=== PATIENT | female | born 1980 | race Caucasian/White ===

== ENCOUNTER 2018-01-04 01:15 | Emergency (ER) | payer SELFPAY ==
[2018-01-04] MEDS ORDERED: DIPHTH,PERTUSS(ACELL),TET VAC 0.5 ML VIAL IM ONE (01:24)
[2018-01-04] MEDS ORDERED: ACETAMINOPHEN 325 MG TABLET (FP) PO ONE (01:26)
[2018-01-04 02:00] LABS: URINE APPEARANCE CLEAR; URINE BILIRUBIN NEGATIVE (<2.0 mg/dL); URINE BLOOD 2+ (NEGATIVE); URINE COLOR STRAW; URINE GLUCOSE (UA) NEGATIVE (NEGATIVE); URINE KETONE NEGATIVE (NEGATIVE); URINE LEUK ESTERASE NEGATIVE (NEGATIVE); URINE NITRITE NEGATIVE (NEGATIVE); URINE PROTEIN NEGATIVE (NEGATIVE); URINE UROBILINOGEN NEGATIVE mg/dL (0.2-1.0)
--- NOTE | 2018-01-04 02:02 | PDOC ---
History of Present Illness - General Chief Complaint: Injury Stated Complaint: LAC TO FOREHEAD History Source: Patient Exam Limitations: No Limitations - History of Present Illness Initial Comments: 01/04/18 01:56 37-year-old female no past medical history here today status post trip and fall sustaining a laceration to her forehead. Patient states she was at a bar was outside having a cigarette subsequent fell forward hitting her forehead on the cement unsure of LOC did sustain a large laceration to her anterior scalp and forehead. States tetanus was unknown has had active bleeding since no other complaints of current pain no neck or back pain. No moderating factors. Past History - Past Medical History Allergies/Adverse Reactions: Allergies Allergy/AdvReac Type Severity Reaction Status Date / Time No Known Allergies Allergy Verified 01/04/18 02:31 - Suicide/Smoking/Psychosocial Hx Smoking History: Never smoked Have you smoked in the past 12 months: No Hx Alcohol Use: No Substance Use Type: None Review of Systems - Review of Systems Constitutional: No: Chills, Diaphoresis HEENTM: No: Eye Pain, Blurred Vision, Nose Bleeding Respiratory: No: Cough, Orthopnea, Wheezing Cardiac (ROS): No: Chest Pain ABD/GI: No: Abdominal Distended Musculoskeletal: No: Back Pain Integumentary: Yes: Other (laceration) Neurological: No: Headache, Numbness All Other Systems: Reviewed and Negative *Physical Exam - Physical Exam General Appearance: Yes: Nourished, Appropriately Dressed HEENT: positive: Normal ENT Inspection, Other (large forehead laceration) Neck: positive: Trachea midline. negative: Tender Respiratory/Chest: positive: Lungs Clear, Normal Breath Sounds. negative: Chest Tender Cardiovascular: positive: Regular Rhythm, Regular Rate, S1, S2. negative: Edema Gastrointestinal/Abdominal: positive: Normal Bowel Sounds, Flat, Soft. negative : Tender Musculoskeletal: positive: Normal Inspection. negative: Vertebral Tenderness Extremity: positive: Normal Capillary Refill, Normal Inspection Integumentary: positive: Normal Color, Dry, Warm, Other (large stellate laceration anterior forehead into scalp , down to skull. no palp step off. ) Neurologic: positive: environmental marketer II-XII NML intact, Fully Oriented, Alert, Motor Strength 5/5, Other (GCS 15) Procedures - Laceration/Wound Repair Face Wound Length: 7.6 to 12.5 cm Wound Explored: clean Wound's Depth, Shape: stellate Irrigated w/ Saline: Yes Betadine Prep: No Anesthesia: 2% Lidocaine w/ Epi Wound Debrided: minimal Wound Repaired With: Sutures, [place] Suture Size/Type: 5:0, nylon, other (deep layer 3.0 chromic gut) Number of Sutures: 7 (and 9 deanne) Layer Closure: Yes Deep Layer Suture Size/Type: 3:0, gut Sterile Dressing Applied: Yes Splint Applied: No Sling Applied: No ED Treatment Course - RADIOLOGY Radiology Studies Ordered: Category Date Time Status HEAD CT WITHOUT CONTRAST [CT] Stat CT Scan 01/04/18 01:22 Taken Medical Decision Making - Medical Decision Making 01/04/18 02:01 37 yo F s/p trip and fall with large laceration to forehead to skull, and into scalp stellate. irregular and deep. plan ct head r/o underlying skull fracture or head bleed, lac repair with both sutures and deanne. shawn ms home. *DC/Admit/Observation/Transfer Diagnosis at time of Disposition: Laceration - Discharge Dispostion Disposition: HOME Condition at time of disposition: Improved Admit: No - Referrals - Patient Instructions Printed Discharge Instructions: DI for Suture Removal, DI for Laceration Repair -- Deanne Additional Instructions: you should return for suture removal,and staple removal in 7 - 10 days. take ibuprofen 600 mg every 8 hrs as needed for pain. keep clean and dry for 24 - 48 hrs, then wash with mild soap and water. you can apply bacitracin over the counter ointment twice daily to wound,. keep out of sun to avoid scarring. return for redness, swelling or any signs of infection. - Post Discharge Activity
[2018-01-04 02:14] LABS: EPI CELLS RARE /HPF (FEW)
[2018-01-04] MEDS ORDERED: LIDO 2%/EPI 1:200000 PRESRVFRE (20 ML SDVIAL) ONE (02:29)
[2018-01-04 02:38] VITALS: BP 129/85; PULSE 115; TEMP 97.9; BMI 29.1
[2018-01-04] MEDS ORDERED: ACETAMINOPHEN 325 MG TABLET (FP) ONE (02:39)
== END 2018-01-04 03:42 | disposition home or self-care (01) ==
LOC: FER 01:15
PROC: 3E0234Z Introduction of Serum, Toxoid and Vaccine into Muscle, Percutaneous Approach (ICD-10-PCS; principal; 2018-01-04)
PROC: 0HQ1XZZ Repair Face Skin, External Approach (ICD-10-PCS; 2018-01-04)
DX: S01.81XA Laceration without foreign body of other part of head, initial encounter (principal); W18.39XA Other fall on same level, initial encounter; Y93.89 Activity, other specified; Y92.89 Other specified places as the place of occurrence of the external cause
CPT/HCPCS: 70450-TC; 81003; 81015; 99282-25

== ENCOUNTER 2019-09-17 19:24 | Emergency (ER) | payer OTHER ==
[2019-09-17 19:42] VITALS: TEMP 98.6; BMI 34.0
[2019-09-17] MEDS ORDERED: morphine CARPU-JECT 4 MG/1 ML DISP.SYRIN IVPUSH ONE ×2 (20:06→20:09)
--- NOTE | 2019-09-17 20:06 | PDOC ---
History of Present Illness - General Chief Complaint: Bone Injury Stated Complaint: BROKEN ANKLE Time Seen by Provider: 09/17/19 19:49 - History of Present Illness Initial Comments: Ms. Barron is a 39 y/o female with non-contributory PMH presenting today s/p mechanical fall. Reports that she slipped on a wet floor at around 6pm today. Denies head trauma or LOC. Denies dizziness or heart palpitations prior to fall. Reports that she fell forward. Currently reports left ankle swelling and pain. Denies chest pain/shortness of breath. Denies abdominal pain. Denies urinary symptoms. Denies changes in stool. Denies nausea/vomiting. Denies pain anywhere else. Past History - Past Medical History Allergies/Adverse Reactions: Allergies Allergy/AdvReac Type Severity Reaction Status Date / Time No Known Allergies Allergy Verified 01/04/18 02:31 Home Medications: Ambulatory Orders Oxycodone HCl/Acetaminophen [Percocet 5-325 mg Tablet] 1 tab PO Q6H PRN #6 tablet MDD 4 09/17/19 COPD: No Kidney Stones: Yes (lithotripsy) Other medical history: hypoglycemia - Psycho Social/Smoking Cessation Hx Smoking History: Current every day smoker Have you smoked in the past 12 months: No Number of Cigarettes Smoked Daily: 10 Information on smoking cessation initiated: No 'Breaking Loose' booklet given: 01/04/18 Hx Alcohol Use: No Drug/Substance Use Hx: No Substance Use Type: None Review of Systems - Review of Systems Comments:: GENERAL/CONSTITUTIONAL: No fever or chills. No weakness._ HEAD, EYES, EARS, NOSE AND THROAT: No change in vision. No change in hearing. No sore throat._ CARDIOVASCULAR: No chest pain or shortness of breath_ RESPIRATORY: Denies cough, hemoptysis_ GASTROINTESTINAL: No nausea, vomiting, diarrhea or constipation._ GENITOURINARY: No dysuria, frequency, or change in urination._ MUSCULOSKELETAL: Reports left ankle swelling and pain. SKIN: No rash_ NEUROLOGIC: No headache, vertigo, loss of consciousness, or change in strength/ sensation._ ENDOCRINE: No increased thirst. No abnormal weight change_ HEMATOLOGIC/LYMPHATIC: No anemia, easy bleeding, or history of blood clots._ ALLERGIC/IMMUNOLOGIC: No hives or skin allergy._ *Physical Exam - Vital Signs Last Vital Signs Temp Pulse Resp BP Pulse Ox 98.6 F 85 18 116/85 100 09/17/19 19:30 09/17/19 19:30 09/17/19 19:30 09/17/19 19:30 09/17/19 19:30 - Physical Exam GENERAL: Awake, alert, and oriented to person/place/time, in no acute distress_ HEAD: No signs of trauma, normocephalic, atraumatic _ EYES: PERRLA, EOMI, sclera anicteric, conjunctiva clear_ ENT: Hearing grossly normal, nares patent, oropharynx clear without exudates. No uvular deviation. Moist mucosa_ NECK: Normal ROM, supple, no lymphadenopathy, JVD, or masses_ LUNGS: No distress, speaks in full sentences, clear to auscultation bilaterally _ HEART: Regular rate and rhythm, normal S1 and S2, no murmurs appreciated, peripheral pulses normal and equal bilaterally._ ABDOMEN: Soft, nontender, normoactive bowel sounds. No guarding, no rebound. No masses_ EXTREMITIES: Normal inspection, Normal range of motion, no edema. No clubbing or cyanosis. Mild left hip TTP without obvious swelling. LLE: Inspection: No erythema. Ecchymosis over left ankle. TTP left lateral and anterior aspect of ankle. Left ankle swelling. No open wounds. Compartments soft and compressible, pain within proportion. Knee stable to anterior/posterior drawer and varus/valgus stress Sensation: Intact and equal bilaterally Motor: 5/5 EHL, 5/5 FHL, 5/5 TA, 5/5GS, 5/5 Quad, 5/5 Ham Vascular: 2+ DP/PT, all toes BCR <2 sec NEUROLOGICAL: Cranial nerves II through XII grossly intact. Normal speech, normal gait, no focal sensorimotor deficits _ SKIN: Warm, Dry, normal turgor, no rashes or lesions noted_ Medical Decision Making - Medical Decision Making 09/17/19 20:05 39F non-contributory PMH -XR left knee, tib/fib, ankle, foot -morphine 09/17/19 21:33 Self read of XR of the left ankle shows posterior dislocation and oblique displaced fracture of the left fibula. 09/17/19 22:05 Conscious Sedation Note Indication: left ankle posterior dislocation and fibula fracture. Pre-sedation history and examination revealed: ASA score 1; family history negative for adverse anesthetic/sedative reactions; normal dentition/neck mobility; and no contraindications to sedation. Risks, benefits and alternatives were discussed, who desired to proceed. O2 saturation, and BP constantly monitored during sedation. A qualified nurse and additional provider were present during the sedation.? The patient received 80 mg IV ketamine , achieving an appropriate level of sedation. The patient then underwent left ankle reduction. Total sedation time for which I was present was 20 minutes until minimal consciousness and responsiveness achieved, and deep/moderate sedation was no longer present. There were no significant O2 desaturations or complications during this sedation and procedure. Patient was subsequently monitored until reevaluation revealed patient was back to neurologic baseline. Attending Physician Dr. Day was present for the entirety of the procedure. Joint Reduction Note Consent (written) was obtained from the patient after the risks and benefits were discussed. Nursing staff were present and the patient was monitored using continuous pulse oximetry and telemetry. The patient was pre-oxygenated using high flow oxygen. IV ketamine was used to achieve sedation and the procedure was performed. Once the patient was adequately sedated, the left ankle was reduced using the traction-counter traction technique. A postoperative X-ray revealed the joint to be adequately reduced. Subsequently, the patient was monitored until the sedation wore off and the patient was alert and recovered. I was present for the entire procedure and there were no complications. Attending Dr. Day was present for the entirely of the procedure. 09/17/19 23:15 Self-read of post-reduction XR shows improved alignment of the left ankle and left fibula. Patient able to ambulate on crutches. Plan to d/c home, percocet and motrin for pain control, f/u ortho. Return precautions discussed. Patient verbalized understanding and agreement with plan. All questions answered. Discharge - Discharge Information Problems reviewed: Yes Clinical Impression/Diagnosis: Injury Ankle dislocation Qualifiers: Encounter type: initial encounter Laterality: left Qualified Code(s): S93.05XA - Dislocation of left ankle joint, initial encounter Condition: Stable Disposition: HOME - Additional Discharge Information Prescriptions: Oxycodone HCl/Acetaminophen [Percocet 5-325 mg Tablet] 1 tab PO Q6H PRN #6 tablet MDD 4 PRN Reason: Pain - Follow up/Referral Referrals: Christopher Gan MD [Staff Physician] - - Patient Discharge Instructions Patient Printed Discharge Instructions: DI for Moderate Sedation, DI for Ankle Dislocation Additional Instructions: Your x-rays showed a posterior dislocation of the left ankle and fracture of the left fibula. Your ankle was reduced and placed in a cast. Please keep the cast in place until you see Dr. Gan (orthopedics) and pleas avoid bearing weight on your left ankle. Please make a follow up appointment with Dr. Gan in the next week. He will be in the office on Friday. You have been prescribed 6 tabs of Percocet as needed for your pain until you are able to see the orthopedist. You may also take Tylenol or Motrin as needed for your pain. If you experience any new, worsening, or concerning symptoms, including a change in color or temperature of the foot, or any other concerns, please return to the emergency department. - Post Discharge Activity
[2019-09-17] MEDS ORDERED: morphine SULFATE 4 MG/ML VIAL ONE (20:31)
[2019-09-17] MEDS ORDERED: MORPHINE SULFATE 2 MG/ML VIAL ONE (20:32)
[2019-09-17] MEDS ORDERED: KETAMINE HCL 200 MG/20 ML VIAL IVPUSH ONE ×2 (21:29)
[2019-09-17] MEDS ORDERED: KETAMINE HCL 200 MG/20 ML VIAL ONE (21:33)
--- NOTE | 2019-09-17 21:34 | CON.ORTH ---
Consult Consult Specialty:: Orthopedics Reason for Consultation:: left ankle fracture and dislocation - History of Present Illness Chief Complaint: Left ankle pain History of Present Illness: This is a 39 yo F with no PMHx who presented to the ED for left ankle injury s/ p mechanical fall earlier today. Patient states she slipped on a wet floor in [facility] and twisted her ankle. She was unable to ambulate after the injury. Denies any previous injury to this ankle. Notes mild tingling to dorsum of foot. - History Source History Provided By: Patient Limitations to Obtaining History: No Limitations - Past Medical History ...LMP: 12/12/13 - Alcohol/Substance Use Hx Alcohol Use: No - Smoking History Smoking history: Current every day smoker Have you smoked in the past 12 months: No Aproximately how many cigarettes per day: 10 Home Medications - Allergies Allergies/Adverse Reactions: Allergies Allergy/AdvReac Type Severity Reaction Status Date / Time No Known Allergies Allergy Verified 01/04/18 02:31 - Home Medications Home Medications: Ambulatory Orders Oxycodone HCl/Acetaminophen [Percocet 5-325 mg Tablet] 1 tab PO Q6H PRN #6 tablet MDD 4 09/17/19 Review of Systems - Review of Systems Musculoskeletal: reports: Joint Pain (Left ankle pain and swelling) Physical Exam for Ortho Vital Signs: Vital Signs Temperature 98.6 F 09/17/19 19:30 Pulse Rate 85 09/17/19 19:30 Respiratory Rate 18 09/17/19 19:30 Blood Pressure 116/85 09/17/19 19:30 O2 Sat by Pulse Oximetry (%) 100 09/17/19 19:30 Constitutional: Yes: Well Nourished, No Distress - Lower Extremity Ankle: Yes: Left (No skin lesions. Diffuse swelling. Notable deformtiy. Tenderness throughout. Decreased sensation to dorsal medial aspect of foot.) Imaging - Results X-ray: Image Reviewed (Left ankle and tib/fib radiographs show anterior ankle dislocation with lateral malleoli fracture) Problem List - Problems (1) Closed left ankle fracture Code(s): S82.892A - OTH FRACTURE OF LEFT LOWER LEG, INIT FOR CLOS FX Assessment/Plan 39 yo F with no PMHx presented to ED with left ankle pain s/p mechanical fall earlier today. -Case discussed with Dr. Gan -Left ankle and tib/fib XR show anterior ankle dislocation with lateral malleoli fracture -Due to her significant swelling, surgery to be done next week most likely -Patient consented for reduction of left ankle in ER -Procedure as below -Patient tolerated procedure well -Post-reduction films ordered -Nonweight-bearing with crutches -F/u with Dr. Gan as outpatient to further discuss surgical options Procedure: Under conscious sedation, patient's left LE was hung by gravity and a closed reduction was performed. Patient was then placed in a posterior and U-splint.
--- NOTE | 2019-09-17 22:23 | PDOC ---
Documentation entered by Marta Boswell SCRIBE, acting as scribe for Monika Day MD. Monika Day MD: This documentation has been prepared by the Andreia goode Joy, SCRIBE, under my direction and personally reviewed by me in its entirety. I confirm that the documentation accurately reflects all work, treatment, procedures, and medical decision making performed by me. Attending Attestation - Resident Resident Name: Bari Hastings - ED Attending Attestation I have performed the following: I have examined & evaluated the patient, The case was reviewed & discussed with the resident, I agree w/resident's findings & plan, Exceptions are as noted - HPI HPI: 09/17/19 20:32 The patient is a 39 year old female with no significant past medical history who presents to the ED with broken ankle s/p fall earlier today. As per patient , at 6 PM she slipped on a wet surface and fell forward with no head strike or loss of consciousness. The patient is unable to ambulate. The patient denies head strike, LOC, chest pain, shortness of breath, headache and dizziness. Denies fever, chills, nausea, vomiting, diarrhea and constipation. Denies dysuria, frequency, urgency and hematuria. Allergies: NKA 09/17/19 20:56 - Physicial Exam PE: 09/17/19 20:39 GENERAL: Awake, alert, and fully oriented, in no acute distress EXTREMITIES: +Deformity of anterior ankle, with posterior dislocation of the foot. + exquisite tenderness of the lateral malleolus, intact dP pulses, intact sensation. No clubbing or cyanosis. NEUROLOGICAL: Cranial nerves II through XII grossly intact. Normal speech SKIN: Warm, Dry, normal turgor, no rashes or lesions noted. 09/17/19 21:23 - Medical Decision Making 09/17/19 22:06 Pt presents to the ED complaining of painful, deformed ankle after mechanical trip and fall. +xray shows fracture dislocation. Reduced under conscious sedation by ortho PA. Will check post reduction films and discharge home if reduction is satisfactory. 09/17/19 22:22
[2019-09-17 23:53] VITALS: BP 101/71; PULSE 92
== END 2019-09-17 23:45 | disposition home or self-care (01) ==
LOC: JER 19:24
PROC: 3E033NZ Introduction of Analgesics, Hypnotics, Sedatives into Peripheral Vein, Percutaneous Approach (ICD-10-PCS; principal; 2019-09-17)
DX: S82.892A Other fracture of left lower leg, initial encounter for closed fracture (principal); W01.0XXA Fall on same level from slipping, tripping and stumbling without subsequent striking against object, initial encounter; Y92.9 Unspecified place or not applicable; F17.210 Nicotine dependence, cigarettes, uncomplicated
CPT/HCPCS: 36415; 73562-TC-LT-FY; 73590-TC-LT-FY; 73610-TC-LT-FY; 73630-TC-LT; 84703; 99284-25

== ENCOUNTER 2019-09-30 06:06 | Day surgery (SDC) | payer OTHER ==
[2019-09-23 15:27] VITALS: BMI 34.0
[2019-09-30] MEDS ORDERED: PROPOFOL 20 ML ONE ×2 (07:23)
[2019-09-30] MEDS ORDERED: SUCCINYLCHOLINE CHLORIDE 200 MG/10 ML SYRINGE ONE (07:23)
[2019-09-30] MEDS ORDERED: MIDAZOLAM HCL 2 MG/2 ML SINGLE DOSE VIAL ONE (07:23)
[2019-09-30] MEDS ORDERED: EPHEDRINE SULFATE/0.9% NACL/PF 50 MG/10 ML SYRINGE NR ONE (07:24)
[2019-09-30] MEDS ORDERED: ROPIVACAINE HCL 0.5% 30ML VIAL ONE (07:28)
[2019-09-30] MEDS ORDERED: LIDOCAINE HCL/PF 2% SDV 5ML VIAL ONE (07:44)
[2019-09-30] MEDS ORDERED: ceFAZolin SODIUM 1 GM VIAL ONE (07:52)
[2019-09-30] MEDS ORDERED: DEXAMETHASONE SOD PHOSPHATE 4 MG/1 ML VIAL ONE (07:53)
[2019-09-30] MEDS ORDERED: ONDANSETRON 4 MG/2 ML VIAL ONE (07:53)
[2019-09-30] MEDS ORDERED: IBUPROFEN 400 MG TABLET (FP) PO PRN ×2 (09:07→09:17)
[2019-09-30] MEDS ORDERED: ACETAMINOPHEN 325 MG TABLET (FP) PO PRN (09:16)
[2019-09-30] MEDS ORDERED: ONDANSETRON 4 MG/2 ML VIAL IVPUSH PRN (09:16)
[2019-09-30] MEDS ORDERED: oxyCODONE HCL 5 MG TABLET PO PRN ×2 (09:16)
[2019-09-30] MEDS ORDERED: LACTATED RINGERS SOLUTION 1,000 ML IV SCH (09:30)
[2019-09-30] MEDS ORDERED: oxyCODONE HCL 5 MG TABLET ONE (10:57)
[2019-09-30 11:34] VITALS: TEMP 98.7
[2019-09-30 12:54] VITALS: BP 120/72; PULSE 86
--- NOTE | 2019-10-01 18:58 | OP ---
DATE OF OPERATION: 09/30/2019 ATTENDING SURGEON: Sourav Riggs MD ASSISTANTS: None. PREOPERATIVE DIAGNOSIS: Bimalleolar equivalent fracture of the left ankle. POSTOPERATIVE DIAGNOSIS: Bimalleolar equivalent fracture of the left ankle. PROCEDURE: Open reduction internal fixation of the left lateral malleolus ankle fracture. ANESTHESIA: Regional and general. ESTIMATED BLOOD LOSS: Minimal. COMPLICATIONS: None. IMPLANTS USED: Arthrex 4-hole locking fibular plate with 4 locking screws and a total of 4 cortical screws 3.5 mm. DISPOSITION: Stable to the recovery room following the procedure. INDICATIONS: This is a 39-year-old woman who had a twisting injury to her left ankle suffering a displaced bimalleolar equivalent fracture. She had a reduction performed in the emergency room and splinting and followed up in the office. After a thorough discussion of the risks and benefits with the patient regarding surgical treatment, including infection, stiffness, progression and posttraumatic arthritis, hardware complications, neurovascular injury, she understands and wishes to proceed with open reduction internal fixation. DETAILS OF THE PROCEDURE: The patient was identified in the preoperative area. She underwent a regional block. She received 2 g of Ancef IV. She was taken to the operating room and placed supine on the operating room table. After general anesthesia was given, the left ankle and lower extremity were prepped and draped in the standard sterile fashion with a non-sterile tourniquet on the left thigh. The tourniquet was not inflated during the case. An approximately 6 cm incision was made laterally centered over the fracture site. Dissection was carried down sharply to bone and the fracture site was identified. The fracture hematoma was evacuated and the fracture was reduced and held initially with the interfragmentary screw anterior to posterior. A 4-hole locking fibular plate was then affixed to the lateral aspect of the fibula in the appropriate position. A total of 3 bicortical screws were placed proximally and 4 unicortical locking screws distally to complete the fixation. Position of the hardware and reduction of the fracture was confirmed on C-arm imaging. The wound was irrigated and then closed with 2-0 Vicryl and 3-0 nylon. A sterile dressing was applied with the splint. Patient was then awoken from anesthesia without complication, taken to the recovery room in stable condition. SOURAV RIGGS M.D. LANA/[id number]
== END 2019-09-30 12:30 | disposition home or self-care (01) ==
LOC: FASU 06:06
PROVIDERS: ATTEND Orthopaedic Surgery
PROC: 0QSK04Z Reposition Left Fibula with Internal Fixation Device, Open Approach (ICD-10-PCS; principal; 2019-09-30 08:04)
DX: S82.842A Displaced bimalleolar fracture of left lower leg, initial encounter for closed fracture (principal); X58.XXXA Exposure to other specified factors, initial encounter; Y93.9 Activity, unspecified; Y92.9 Unspecified place or not applicable
CPT/HCPCS: 73610-TC-LT-FY; 76000-TC-FY; 94760

== ENCOUNTER 2022-11-20 16:16 | Emergency (ER) | payer OTHER ==
[2022-11-20 16:37] VITALS: BP 142/84; RESP 20; TEMP 98.4; BMI 36.8
[2022-11-20] MEDS ORDERED: ACETAMINOPHEN 500 MG TABLET (FP) PO ONE (18:24)
[2022-11-20] MEDS ORDERED: ACETAMINOPHEN 500 MG TABLET (FP) ONE (18:26)
[2022-11-20 18:43] VITALS: PULSE 62
== END 2022-11-20 18:45 | disposition home or self-care (01) ==
LOC: JERFT 16:16 → JER 16:16 → JERFT 18:45
DX: M54.89 Other dorsalgia (principal); V49.40XA Driver injured in collision with unspecified motor vehicles in traffic accident, initial encounter
CPT/HCPCS: 72050-TC-FY; 72100-TC-FY; 99284-25